=== PATIENT | female | born 1965 | race Caucasian/White ===

== ENCOUNTER 2018-12-14 10:57 | Inpatient (IN) | payer OTHER ==
[~2018-12-14] VITALS: Ht 162.6 cm; Wt 73.9 kg
--- NOTE | 2018-12-14 11:08 | NUR ---
ED Nurse Note: PT WALKED IN TO ER TODAY FROM HOME. AOX1. NUCLEAR MEDICINE OFFICER AT BEDSIDE WHO STATES THIS IS BASELINE FOR PT. PER NUCLEAR MEDICINE OFFICER, SHE NOTICED PT WITH RIGHT SIDED LOWER JAW SWELLING X THIS AM. PT AND NUCLEAR MEDICINE OFFICER DENY ANY RECENT INJURY OR TRAUMA. PT DENIES PAIN. NUCLEAR MEDICINE OFFICER STATES PT IS STILL ABLE TO EAT WITHOUT DIFFICULTY.
[2018-12-14 11:09] VITALS: BP 124/76
[2018-12-14] MEDS ORDERED: ANASTROZOLE1 MG PO (11:09)
[2018-12-14] MEDS ORDERED: RALOXIFENE HCL60 MG PO (11:09)
[2018-12-14] MEDS ORDERED: LEVOTHYROXINE75 MCG ORAL (11:09)
[2018-12-14] MEDS ORDERED: CARBAMAZEPINE200 MG ORAL (11:09)
[2018-12-14] MEDS ORDERED: Isovue-300 100ml vial INJ PRN (12:00)
[2018-12-14 12:51] LABS: BASOPHILS % (AUTO) 1.2 % (0.0-2.0); EOSINOPHILS % (AUTO) 1.8 % (0.0-3.0); HEMATOCRIT 40.4 % (37.0-47.0); HEMOGLOBIN 13.3 G/DL (12.0-16.0); LYMPHOCYTES % (AUTO) 22.2 % (20.0-45.0); MEAN CORPUSCULAR VOLUME 95 FL (80-99); MONOCYTES % (AUTO) 9.6 % (1.0-10.0); NEUTROPHILS % (AUTO) 65.2 % (45.0-75.0); PLATELET COUNT 235 K/UL (150-450); RED BLOOD COUNT 4.27 M/UL (4.20-5.40); RED CELL DISTRIBUTION WIDTH 11.9 % (11.6-14.8); WHITE BLOOD COUNT 7.3 K/UL (4.8-10.8)
[2018-12-14 13:01] LABS: ANION GAP 8 mmol/L (5-15); BLOOD UREA NITROGEN 8 mg/dL (7-18); CARBON DIOXIDE 29 MMOL/L (21-32); CHLORIDE 104 MMOL/L (98-107); CREATININE 0.6 MG/DL (0.55-1.30); SODIUM 141 MMOL/L (136-145)
--- NOTE | 2018-12-14 13:08 | NUR ---
ED Nurse Note: PT TO CT VIA WHEELCHAIR.
--- NOTE | 2018-12-14 13:15 | Emergency Room Report ---
History of Present Illness General Chief Complaint: Skin Rash/Abscess Source: Patient Present Illness HPI This patient has a history of developmental delay and is accompanied by her caregiver. The patient had recent cold but has improved significantly. However , she woke up this morning with swelling over her right lower cheek. Patient denies pain. Has been no fever or chills. There is been no nausea or vomiting. There are no other complaints. Allergies: Coded Allergies: No Known Allergies (Unverified , 12/14/18) Patient History Past Medical History: other - Developmental delay, Breast CA Social History: Denies: smoking, alcohol use, drug use Last Menstrual Period: menopause Reviewed Nursing Documentation: PMH: Agreed; PSxH: Agreed Nursing Documentation-PMH Hx Cancer: Yes - right breast Review of Systems All Other Systems: negative except mentioned in HPI Physical Exam Vital Signs Date Time Temp Pulse Resp B/P (MAP) Pulse Ox O2 Delivery O2 Flow Rate FiO2 12/14/18 11:00 97.9 88 18 128/78 (95) 95 Room Air Sp02 EP Interpretation: reviewed, normal General Appearance: no apparent distress, alert, GCS 15, non-toxic Head: normocephalic, atraumatic Eyes: bilateral eye normal inspection, bilateral eye PERRL ENT: hearing grossly normal, normal pharynx, no angioedema, normal voice, uvula midline, moist mucus membranes, other - Swollen area over R. lower cheek. No fluctuance palpated. Poor dentition. Neck: full range of motion, supple/symm/no masses Respiratory: chest non-tender, lungs clear, normal breath sounds, no respiratory distress, no retraction, no accessory muscle use, speaking full sentences Cardiovascular #1: regular rate, rhythm, no edema Gastrointestinal: normal bowel sounds, non tender, soft, non-distended, no guarding, no rebound Rectal: deferred Musculoskeletal: back normal, gait/station normal, normal range of motion, non- tender Neurologic: alert, responsive, motor strength/tone normal, sensory intact, speech normal, grossly normal Psychiatric: mood/affect normal, no suicidal/homicidal ideation Medical Decision Making Diagnostic Impression: Primary Impression: Facial cellulitis Additional Impression: Dental abscess ER Course This patient has a odontogenic abscess along the mandible. She also has some facial cellulitis. This is associated with a periapical abscess of the tooth. The patient was given broad-spectrum antibiotics IV and admitted for further IV antibiotics and further evaluation by [facility] specialist. Laboratory Tests Test 12/14/18 12:20 White Blood Count 7.3 K/UL (4.8-10.8) Red Blood Count 4.27 M/UL (4.20-5.40) Hemoglobin 13.3 G/DL (12.0-16.0) Hematocrit 40.4 % (37.0-47.0) Mean Corpuscular Volume 95 FL (80-99) Mean Corpuscular Hemoglobin 31.1 PG (27.0-31.0) H Mean Corpuscular Hemoglobin Concent 32.8 G/DL (32.0-36.0) Red Cell Distribution Width 11.9 % (11.6-14.8) Platelet Count 235 K/UL (150-450) Mean Platelet Volume 7.0 FL (6.5-10.1) Neutrophils (%) (Auto) 65.2 % (45.0-75.0) Lymphocytes (%) (Auto) 22.2 % (20.0-45.0) Monocytes (%) (Auto) 9.6 % (1.0-10.0) Eosinophils (%) (Auto) 1.8 % (0.0-3.0) Basophils (%) (Auto) 1.2 % (0.0-2.0) Sodium Level 141 MMOL/L (136-145) Potassium Level 4.0 MMOL/L (3.5-5.1) Chloride Level 104 MMOL/L (98-107) Carbon Dioxide Level 29 MMOL/L (21-32) Anion Gap 8 mmol/L (5-15) Blood Urea Nitrogen 8 mg/dL (7-18) Creatinine 0.6 MG/DL (0.55-1.30) Estimate Glomerular Filtration Rate > 60 mL/min (>60) Glucose Level 97 MG/DL (74-106) Calcium Level 9.0 MG/DL (8.5-10.1) CT/MRI/US Diagnostic Results CT/MRI/US Diagnostic Results : Imaging Test Ordered: CT max/facial Impression 1.8 x 0.5 x 0.7 cm odontogenic abscess along the lateral margin of the right mandible associated with a periapical abscess involving the second molar. Surrounding cellulitis and reactive adenopathy. Last Vital Signs Date Time Temp Pulse Resp B/P (MAP) Pulse Ox O2 Delivery O2 Flow Rate FiO2 12/14/18 11:09 98.1 84 17 124/76 98 Room Air Disposition: ADMITTED INPATIENT Condition: Serious Referrals: AREN ALVARES,REFERRING (PCP) Suzy Salas DO Dec 14, 2018 13:15
[2018-12-14] MEDS ORDERED: Clindamycin 600mg 50 ML IVPB ONE (13:30)
--- NOTE | 2018-12-14 13:30 | NUR ---
ED Nurse Note: PT BACK FROM CT VIA WHEELCHAIR.
--- NOTE | 2018-12-14 14:06 | Diagnostic Imaging Report ---
Indication: Right facial swelling. Infection. Concern for abscess Technique: Continuous helical transaxial imaging of the maxillofacial structures obtained after intravenous contrast administration. Coronal 2-D reformats were also obtained. Study obtained in a Siemens sensation [address] Total Dose length Product (DLP): 623.[address] Dose Index Volume (CTDIvol): 28.19 mGy Comparison: None Findings: There is right facial soft tissue swelling with subcutaneous expansion and reticulation. The right masseter muscle appears relatively symmetric to the normal left side. However, just anterior to the right masseter muscle along the lateral margin of the mandible, there is notable soft tissue swelling. Along the lateral margin of the right mandible, there is a subtle slightly bilobed 1.8 x 0.5 x 0.7 cm (AP oblique x transverse oblique x craniocaudal dimensions respectively) focus of low attenuation consistent with a small abscess, which is a odontogenic in origin as there is an associated periapical lucency or abscess involving the lower right second molar. Small reactive nodes are seen in the submandibular and sublingual region on the right. The muscles of mastication including the buccinator appear normal. The tongue base, parapharyngeal fat appear normal and symmetric. There is a small amount of mucosal thickening in the left maxillary sinus which is incidental. IMPRESSION: 1.8 x 0.5 x 0.7 cm odontogenic abscess along the lateral margin of the right mandible associated with a periapical abscess involving the second molar. Surrounding cellulitis and reactive adenopathy.
--- NOTE | 2018-12-14 14:20 | NUR ---
ED Nurse Note: PHARMACIST IN CHARGE, JENNIFER: [phone]
--- NOTE | 2018-12-14 15:59 | NUR ---
ED Nurse Note: PT MOVED FROM TX1 TO BED 6. REPORT GIVEN TO SAL KHAN.
[2018-12-14] MEDS ORDERED: Lidocaine 2% 20mg/ml/Epi 0.005mg/ml 20ml vial INJ ONE (16:00)
--- NOTE | 2018-12-14 16:44 | History & Physical ---
History and Physical History & Physicial History and Physical HPI The patient has a history of developmental delay, admitted with right mandibular dental abscess - M2. The patient had recent cold but has improved significantly. However, she woke up this morning with swelling over her right lower cheek. Patient denies pain. Has been no fever or chills. There is been no nausea or vomiting. There are no other complaints. Allergies: No Known Allergies Past Medical History: Developmental delay, Breast CA Social History: Denies: smoking, alcohol use, drug use All Other Systems: negative except mentioned in HPI Physical Exam Vital Signs Noted Date Time Temp Pulse Resp B/P (MAP) Pulse Ox O2 Delivery O2 Flow Rate FiO2 12/14/18 11:00 97.9 88 18 128/78 (95) 95 Room Air General Appearance: no apparent distress, alert, GCS 15, non-toxic Head: normocephalic, atraumatic Eyes: bilateral eye normal inspection, bilateral eye PERRL ENT: hearing grossly normal, normal pharynx, no angioedema, normal voice, uvula midline, moist mucus membranes, other - Swollen area over R. lower cheek. No fluctuance palpated. Poor dentition. Neck: full range of motion, supple/symm/no masses Respiratory: chest non-tender, lungs clear, normal breath sounds, no respiratory distress, no retraction, no accessory muscle use, speaking full sentences Cardiovascular: regular rate, rhythm, no edema, Normal HS Gastrointestinal: normal bowel sounds, non tender, soft, non-distended, no guarding, no rebound Musculoskeletal: back normal, gait/station normal, normal range of motion, non- tender Neurologic: alert, responsive, motor strength/tone normal, sensory intact, speech normal, grossly normal Impression: Facial cellulitis Dental abscess Developmental delay Breast CA Plan Broad-spectrum antibiotics IV Drainage by by OMFS specialist in ED. PPX Labs O2 PRN LE[employer]ER meds Laboratory Tests Test 12/14/18 12:20 White Blood Count 7.3 K/UL (4.8-10.8) Red Blood Count 4.27 M/UL (4.20-5.40) Hemoglobin 13.3 G/DL (12.0-16.0) Hematocrit 40.4 % (37.0-47.0) Mean Corpuscular Volume 95 FL (80-99) Mean Corpuscular Hemoglobin 31.1 PG (27.0-31.0) H Mean Corpuscular Hemoglobin Concent 32.8 G/DL (32.0-36.0) Red Cell Distribution Width 11.9 % (11.6-14.8) Platelet Count 235 K/UL (150-450) Mean Platelet Volume 7.0 FL (6.5-10.1) Neutrophils (%) (Auto) 65.2 % (45.0-75.0) Lymphocytes (%) (Auto) 22.2 % (20.0-45.0) Monocytes (%) (Auto) 9.6 % (1.0-10.0) Eosinophils (%) (Auto) 1.8 % (0.0-3.0) Basophils (%) (Auto) 1.2 % (0.0-2.0) Sodium Level 141 MMOL/L (136-145) Potassium Level 4.0 MMOL/L (3.5-5.1) Chloride Level 104 MMOL/L (98-107) Carbon Dioxide Level 29 MMOL/L (21-32) Anion Gap 8 mmol/L (5-15) Blood Urea Nitrogen 8 mg/dL (7-18) Creatinine 0.6 MG/DL (0.55-1.30) Estimate Glomerular Filtration Rate > 60 mL/min (>60) Glucose Level 97 MG/DL (74-106) Calcium Level 9.0 MG/DL (8.5-10.1) Jovan Kirk MD Dec 14, 2018 16:44
--- NOTE | 2018-12-14 17:35 | Consultation ---
Consult Note Consult Note HPI The patient has a history of developmental delay, admitted with right mandibular dental abscess - M2. The patient had recent cold but has improved significantly. However, she woke up this morning with swelling over her right lower cheek. Patient denies pain. Has been no fever or chills. There is been no nausea or vomiting. There are no other complaints. Allergies: No Known Allergies Past Medical History: Developmental delay, Breast CA Social History: Denies: smoking, alcohol use, drug use All Other Systems: negative except mentioned in HPI Physical exam HEENT: Right sided facial swelling, palpable inferior border of mandible, no erythema, no TTP, EOMI, PERRL, No septal hematoma Ears normal Throat: Gross caries tooth #30 with buccal vestibular abscess, FOM soft NT ND , tongue WNL CN V , VII intact BL Radiology report: Vestibular abscess on the right mandible along the inferior border of mandible Laboratory Tests Test 12/14/18 12:20 White Blood Count 7.3 K/UL (4.8-10.8) Red Blood Count 4.27 M/UL (4.20-5.40) Hemoglobin 13.3 G/DL (12.0-16.0) Hematocrit 40.4 % (37.0-47.0) Mean Corpuscular Volume 95 FL (80-99) Mean Corpuscular Hemoglobin 31.1 PG (27.0-31.0) H Mean Corpuscular Hemoglobin Concent 32.8 G/DL (32.0-36.0) Red Cell Distribution Width 11.9 % (11.6-14.8) Platelet Count 235 K/UL (150-450) Mean Platelet Volume 7.0 FL (6.5-10.1) Neutrophils (%) (Auto) 65.2 % (45.0-75.0) Lymphocytes (%) (Auto) 22.2 % (20.0-45.0) Monocytes (%) (Auto) 9.6 % (1.0-10.0) Eosinophils (%) (Auto) 1.8 % (0.0-3.0) Basophils (%) (Auto) 1.2 % (0.0-2.0) Sodium Level 141 MMOL/L (136-145) Potassium Level 4.0 MMOL/L (3.5-5.1) Chloride Level 104 MMOL/L (98-107) Carbon Dioxide Level 29 MMOL/L (21-32) Anion Gap 8 mmol/L (5-15) Blood Urea Nitrogen 8 mg/dL (7-18) Creatinine 0.6 MG/DL (0.55-1.30) Estimat Glomerular Filtration Rate > 60 mL/min (>60) Glucose Level 97 MG/DL (74-106) Calcium Level 9.0 MG/DL (8.5-10.1) Assessment/Plan 53 yr old female with developmental delay, seizure, with one day hx of right sided facial abscess associated with tooth #30 PLAN: I&D bedside under Local anesthesia Cultures were sent RX for Clindamycin 300mg for 7 days Follow up with their general dentist for extraction of tooth #30 within 7 days Christiano Torres DDS Dec 14, 2018 17:35
[2018-12-14 17:50] VITALS: BP 122/76
--- NOTE | 2018-12-14 17:55 | NUR ---
ED Nurse Note: report given to Iman BIRD Endorsed all plan of care to Iman HUANG.
--- NOTE | 2018-12-14 18:10 | NUR ---
ED Nurse Note: patient transferred to with [facility] with all of her belongings.
--- NOTE | 2018-12-14 19:30 | NUR ---
OBTAINED REPORT FROM LIDIA HUANG, PT RESTING IN BED FREE FROM APPARENT DISTRESS.
[2018-12-14 20:00] VITALS: BP 119/68
--- NOTE | 2018-12-14 20:00 | NUR ---
NURSE NOTES: PT IS A 53 YEAR OLD FEMALE FROM HOME HERE DUE TO ODONTOGENIC FACIAL ABSCESS(RIGHT SIDE). SHE HAS A HISTORY OF RIGHT BREAST CANCER AND DEVELOPMENTALLY DELAYED. ADMISSION PROTOCOL COMPLETE AND HEAD TO TOE ASSESSMENT DONE. SKIN INTACT. PER REPORT, I & D OF ABSCESS WAS DONE IN ED (UNABLE TO VISUALIZE). RIGHT SIDE OF FACE IS SWOLLEN. PT DENIES PAIN OR DISCOMFORT OF ANY KIND. PT EDUCATED ON FALL RISK PRECAUTIONS AND RISK FOR SKIN BREAKDOWN. VERBALIZED UNDERSTANDING (REINFORCEMENT REQUIRED). PT ORIENTED TO UNIT AND STAFF. ALL NEEDS ANTICIPATED AND MET. SAFE AND CLUTTER FREE ENVIRONMENT PROVIDED. CALL LIGHT WITHIN REACH AT ALL TIMES.
--- NOTE | 2018-12-14 20:00 | NUR ---
SPOKE WITH MD SAINI, OBTAINED MED ORDERS AND CARRIED OUT (CLINDAMYCIN ROUTINE, HEPARIN ROUTINE, TYLENOL PRN, ZOFRAN PRN, BENADRYL PRN, DILAUDID PRN). OBTAINED REGULAR DIET ORDER (FUL LIQUID CONSISTENCY) AND OKAY TO ADVANCE TOLERATED TO MECHANICAL SOFT (REGULAR DIET). OKAY TO RESUME HOME MEDS. PER MD SAINI, TITRATE O2 PRN TO MAINTAIN O2 SAT 90-96%.
--- NOTE | 2018-12-14 20:30 | NUR ---
HOME MEDICATION RALOXIFENE HCL 60MG PO DAILY NOT AVAILABLE PER PHARMACY ([facility]). CALLED PRIMARY CONTACT ON FILE (JENNIFER) [phone] TO NOTIFY HOME MED UNAVAILABLE AND TO PROVIDE FACILITY WITH HOME MED IF POSSIBLE BUT LINE WAS BUSY. ATTEMPTED MULTIPLE TIMES TO CALL BUT PHONE LINE CONTINUED TO BE OCCUPIED.
[2018-12-14] MEDS ORDERED: Hydromorphone 0.5mg/0.5ml inj IVP PRN (20:45)
[2018-12-14] MEDS: carBAMazepine 200mg tab ORAL SCH (21:16)
[2018-12-15] VITALS: BP 107/60
[2018-12-15 05:00] VITALS: BP 106/67
--- NOTE | 2018-12-15 07:42 | NUR ---
HAND-OFF: Report given to Van HUANG. Pt in bed free from apparent distress.
[2018-12-15 08:00] VITALS: BP 94/55
--- NOTE | 2018-12-15 08:00 | NUR ---
NURSE NOTES: Received report from Dimitry RN, pt laying in bed a/a/o with no signs of distress or other issues at this time. IV ion the left AC gauge#22 heplock. call light within reach. bed in lowest position. side rales up x2. I will f/u as needed.
[2018-12-15] MEDS: carBAMazepine 200mg tab ORAL SCH ×2 (08:54→21:25)
[2018-12-15] MEDS: Anastrazole 1mg tab ORAL SCH (08:54)
[2018-12-15] MEDS: Heparin 5000 units/ml inj SUBQ SCH ×2 (08:55→17:15)
[2018-12-15 12:00] VITALS: BP 103/61
--- NOTE | 2018-12-15 15:00 | NUR ---
NURSE NOTES: Called Yaima Singh pt's caregiver at [phone] to request pt's home medication: Raloxefene HCL, she stated that she will bring it this afternoon. RN called pharmacy to notify. I will f/u as needed. - Per Yaima to call her for any patient needs or questions. Yaima Singh: [phone]
--- NOTE | 2018-12-15 15:12 | General Progress Note ---
Assessment/Plan Assessment/Plan: Facial cellulitis Dental abscess Developmental delay Breast CA PLAN IV antibiotics await clearance appears nontoxic impression, plan, and exam edited and reviewed in detail care discussed with RN Subjective Allergies: Coded Allergies: No Known Allergies (Unverified , 12/14/18) Subjective comfortable confused Objective Last 24 Hour Vital Signs Date Time Temp Pulse Resp B/P (MAP) Pulse Ox O2 Delivery O2 Flow Rate FiO2 12/15/18 12:00 98.1 76 19 103/61 (75) 94 12/15/18 09:00 Room Air Room Air 12/15/18 08:00 97.8 86 19 94/55 (68) 94 12/15/18 05:00 98.8 66 18 106/67 (80) 96 12/15/18 00:00 97.6 60 18 107/60 (76) 12/14/18 20:00 97.8 71 18 119/68 (85) 92 12/14/18 19:00 Room Air 12/14/18 19:00 Room Air 12/14/18 18:10 98.3 79 16 122/76 95 Room Air 12/14/18 17:50 98.3 79 16 122/76 95 Room Air Height (Feet): 5 Height (Inches): 4.00 Weight (Pounds): 163 Objective WDWN NAD clear breath sounds bilaterally without rhonchi or wheeze [id number] without MRG NABS nontender no HSM no CCE nonfocal Joel Porras MD Dec 15, 2018 15:12
[2018-12-15 16:00] VITALS: BP 110/63
--- NOTE | 2018-12-15 16:38 | NUR ---
CASE MANAGEMENT: INITIAL REVIEW 53 YO F PRESENTED TO OUR ED FROM HOME CC: SKIN RASH PMHx: RIGHT BREAST CA. DEVELOPMENTAL DELAY SI:ODONTOGENIC FACIAL ABSCESS. T 97.9 HR 88 RR 18 B/P 128/78 SATS 95% ON RA WNL SI:CLINDAMYCIN IV X1 PATIENT ADMITTED TO MED/SURG 12/14/2018 @ 1514 DCP: PATIENT TO BE DISCHARGED TO HOME ONCE MEDICALLY CLEARED. PLAN OF CARE: IV ANTIBx I&D bedside under Local anesthesia 12/15/2018 SI:ODONTOGENIC FACIAL ABSCESS. T 98.1 HR 76 RR 19 B/P 103/61 SATS 94% ON RA NO LABS TODAY SI:ARIMIDEX PO QD TEGRETOL PO Q12H SYNTHROID PO Q24H CLINDAMYCIN IV Q6H MED/SURG STATUS DCP: PATIENT TO BE DISCHARGED TO HOME ONCE MEDICALLY CLEARED. PLAN OF CARE: IV ANTIBx Addendum: 12/15/18 at 1656 by Amrita Gambino CM INTERQUAL MET
--- NOTE | 2018-12-15 16:50 | NUR ---
INSURANCE NO B/AR INDICATION WHERE TO FAX REVIEWS
--- NOTE | 2018-12-15 19:30 | NUR ---
NURSE NOTES: RECEIVED PATIENT LYING IN BED, AWAKE, ALERT/ORIENTED TO SELF, REALITY ORIENTATION PROVIDED DURING ASSESSMENT, LEFT SIDE FACIAL SWELLING NOTED, DENIES PAIN. NO SIGNS AND SYMPTOMS OF ACUTE CARDIO RESPIRATORY DISTRESS/SHORTNESS OF BREATH, NO PERIPHERAL EDEMA NOTED. ABDOMEN SOFT/NON DISTENDED, BOWEL SOUNDS AUDIBLE, BATHROOM PRIVILEGES WITH SUPERVISION, NOTED WITH STEADY GAIT. SIDE RAILS UP X2 FOR MOBILITY, BED IN LOWEST POSITION FOR SAFETY. CALL LIGHT WITHIN REACH. NAD. BED ALARM ACTIVATED FOR PREVENTIVE MEASURES.
--- NOTE | 2018-12-15 19:31 | NUR ---
HAND-OFF: Report given to Niesha HUANG. pt in stable condition.
[2018-12-15 20:00] VITALS: BP 104/54
[2018-12-16] VITALS: BP 118/67
[2018-12-16 04:00] VITALS: BP 117/61
--- NOTE | 2018-12-16 06:33 | NUR ---
NURSE NOTES: RESTED WELL, NO SIGNIFICANT CHANGE OF CONDITION NOTED THROUGHOUT THE NIGHT. SAFETY MAINTAINED. NAD.
--- NOTE | 2018-12-16 07:17 | NUR ---
HAND-OFF: Report given to SAL SEWELL.
[2018-12-16 08:00] VITALS: BP 130/63
--- NOTE | 2018-12-16 08:02 | NUR ---
NURSE NOTES: pt in bed with no sob nor in any form of distress noted. breathing regular and unlabored. denies pain at this time. no drainage nor bleeding noted on (R)facial area at this time. kept clean and dry. bed in lowest position. call light within reach at all time. will continue to monitor
[2018-12-16] MEDS: carBAMazepine 200mg tab ORAL SCH (08:52)
[2018-12-16] MEDS: Anastrazole 1mg tab ORAL SCH (08:52)
[2018-12-16] MEDS: Heparin 5000 units/ml inj SUBQ SCH (08:56)
[2018-12-16] MEDS ORDERED: RALOXIFENE HCL 60 MG ORAL SCH (09:00)
--- NOTE | 2018-12-16 11:51 | NUR ---
COUNTY ENGINEERINCLUSION INTERN SI:FACIAL CELLULITIS . DENTAL ABSCESS VS: BP 104/54, P 60, T 99.7, RR 19, SpO2 95 IS:CLINDAMYCIN 50ml IV HEPARIN SUBQ ARIMIDEX 1mg TEGRETOL 200mg SYNTHROID PLAN: BROAD-SPECTRUM IV ANTIBIOTICS MED/SURG STATUS
[2018-12-16 12:00] VITALS: BP 134/68
--- NOTE | 2018-12-16 14:57 | Pulmonology Progress Note ---
Assessment/Plan Assessment/Plan Pulmonary Progress Note Assessment/Plan: Facial cellulitis Dental abscess Developmental delay Breast CA PLAN IV antibiotics await clearance appears nontoxic impression, plan, and exam edited and reviewed in detail care discussed with RN Subjective Allergies: Coded Allergies: No Known Allergies (Unverified , 12/14/18) Subjective comfortable confused Objective Vital SignsNoted Height (Feet): 5 Height (Inches): 4.00 Weight (Pounds): 163 Objective WDWN NAD clear breath sounds bilaterally without rhonchi or wheeze Q1V4GHN without MRG NABS nontender no HSM no CCE nonfocal Subjective ROS Limited/Unobtainable: No Allergies: Coded Allergies: No Known Allergies (Unverified , 12/14/18) Objective Last 24 Hour Vital Signs Date Time Temp Pulse Resp B/P (MAP) Pulse Ox O2 Delivery O2 Flow Rate FiO2 12/16/18 12:00 98.4 67 19 134/68 (90) 98 12/16/18 09:00 Room Air Room Air 12/16/18 08:00 98.0 60 19 130/63 (85) 97 12/16/18 04:00 97.0 63 18 117/61 (79) 95 12/16/18 00:00 99.7 67 18 118/67 (84) 95 12/15/18 20:41 Room Air Room Air 12/15/18 20:00 98.3 73 18 104/54 (71) 95 12/15/18 16:00 98.8 79 18 110/63 (79) 98 Intake and Output 12/15/18 12/16/18 19:00 07:00 Intake Total 600 ml 1320 ml Balance 600 ml 1320 ml Intake Oral 600 ml 420 ml IV Total 100 ml Other 800 ml # Voids 3 4 Current Medications Medications (Trade) Dose Ordered Sig/Neyda Route PRN Reason Start Time Stop Time Status Last Admin Dose Admin Acetaminophen (Tylenol) 650 mg Q6H PRN ORAL Mild Pain/Temp > 101 12/14/18 20:45 01/13/19 20:44 12/14/18 21:16 Anastrozole (Arimidex) 1 mg DAILY ORAL 12/15/18 09:00 01/14/19 08:59 12/16/18 08:52 Carbamazepine (TEGretol) 200 mg Q12HR ORAL 12/14/18 21:00 01/13/19 20:59 12/16/18 08:52 Clindamycin HCl/ Dextrose 50 ml @ 100 mls/hr Q6H IV 12/14/18 22:00 12/21/18 21:59 12/16/18 09:37 Diphenhydramine HCl (Benadryl) 25 mg Q6H PRN ORAL Itching 12/14/18 20:45 01/13/19 20:44 12/14/18 21:16 Heparin Sodium (Porcine) (Heparin 5000 units/ml) 5,000 units BID SUBQ 12/15/18 09:00 01/14/19 08:59 12/16/18 08:56 Hydromorphone HCl (Dilaudid) 0.5 mg Q4H PRN IVP Severe Pain (Pain Scale 7-10) 12/14/18 20:45 12/21/18 20:44 Levothyroxine Sodium (Synthroid) 50 mcg Q24H ORAL 12/15/18 06:30 01/14/19 06:29 12/16/18 06:40 Ondansetron HCl (Zofran) 4 mg Q8H PRN IVP Nausea & Vomiting 12/14/18 20:45 01/13/19 20:44 Patient Own Medication (Patient's Own Med) 1 ea DAILY ORAL 12/16/18 09:00 01/15/19 08:59 12/16/18 08:52 Jovan Kirk MD Dec 16, 2018 14:57
--- NOTE | 2018-12-16 15:20 | NUR ---
INSURANCE UPDATED CLINICALS and REVIEW HAVE BEEN FAXED TO: [facility] PLEASE FAX THE REVIEW AND CLINICAL TO [facility]: DINH p- [phone] X [id number] F- [phone]...........REVIEW/CLINICAL
[2018-12-16] MEDS ORDERED: CLEOCIN HCL300 MG PO (16:56)
--- NOTE | 2018-12-16 18:15 | NUR ---
NURSE NOTES: pt discharged to home with stable condition picked up by taxi. Singh (caregiver) made aware of pt's discharge. All discharge instruction given to pt and caregiver and verbalized understanding. iv line removed and covered with gauze and taped.
--- NOTE | 2018-12-17 21:56 | Discharge Summary ---
Discharge Summary Discharge Summary _ DATE OF ADMISSION: 12/14/2018 DATE OF DISCHARGE: 12/16/2018 DISCHARGED BY: Dr. Porras REASON FOR ADMISSION: 53 years old female with history of right breast CA, developmental delay, presented to emergency department, accompanied by her caregiver. Patient woke up in the morning with swelling over her right lower cheek. Patient denied pain. She denied fever and chills. No nausea, no vomiting. Patient had recent cold, but improved significantly. Upon evaluation vital signs were stable. Maxillofacial CT scan revealed 1.8 x 0.5 x 0.7 cm odontogenic abscess along the lateral margin of the right mandible associated with a periapical abscess, involving the second molar. Surrounding cellulitis and reactive adenopathy noted. Laboratory work-up revealed no leukocytosis, stable hemoglobin and hematocrit. Chemistry stable. Patient admitted for further evaluation by OMFS . CONSULTANTS: DANILO Torres [facility] COURSE: Patient admitted to medical surgical floor. Patient started on broad-spectrum antibiotic. Patient was evaluated by OMFS specialist. Patient undergone at the bedside incision and drainage of the dental abscess under local anesthesia. Cultures were sent. Prescription provided for clindamycin 300 mg for 7 days. Patient to follow-up with a general dentist for extraction of tooth within 7 days. Home medication were continued. Pain management was addressed as needed. DVT prophylaxis provided. Patient clinically stabilized and was ready for discharge home. FINAL DIAGNOSES: Facial cellulitis Right mandibular dental abscess-M2 Developmental delay History of breast CA right DISCHARGE MEDICATIONS: See Medication Reconciliation list. DISCHARGE INSTRUCTIONS: Patient was discharged home. Patient to follow-up with general dentist for extraction of tooth within 7 days. I have been assigned to dictate discharge summary for this account. I was not involved in the patient's management. Sydney Salinas NP Dec 17, 2018 21:56
--- NOTE | 2018-12-19 11:18 | NUR ---
*-* INSURANCE *-* ALL CLINICALS AND REVIEWS HAVE BEEN FAXED TO: [facility] TRK# [id number] P:[phone] F:[phone]
== END 2018-12-16 18:15 | disposition home or self-care (01) | DRG 383 ==
LOC: EMR 11:40 → 4E 15:14 → EDBEDREQ 17:54
DX: L03.211 Cellulitis of face (principal); F79 Unspecified intellectual disabilities; K04.7 Periapical abscess without sinus; M27.2 Inflammatory conditions of jaws; Z85.3 Personal history of malignant neoplasm of breast
CPT/HCPCS: 36415; 70487; 80048; 85025; 96365; 99285; S0077